=== PATIENT | female | born 1960 | race Caucasian/White ===

== ENCOUNTER 2021-03-14 15:29 | Observation (INO) | payer OTHER ==
[~2021-03-14] VITALS: Ht 170.2 cm; Wt 86.2 kg
[~2021-03-14 15:29] MED LIST: ASPIR-LOW81 MG PO; LEVOTHYROXINE88 MCG PO; NEXIUM40 MG PO; SERTRALINE HCL25 MG PO; TOPIRAMATE25 MG PO
[2021-03-14 16:35] VITALS: BP 144/83
[2021-03-14 16:38] VITALS: BP 144/83
[2021-03-14 16:41] VITALS: BP 144/83
[2021-03-14] MEDS ORDERED: FAMOTIDINE20 MG PO (16:58)
[2021-03-14] MEDS ORDERED: CRESTOR20 MG PO (16:58)
[2021-03-14] MEDS ORDERED: LEVOTHYROXINE112 MCG PO (16:58)
[2021-03-14] MEDS ORDERED: SERTRALINE HCL100 MG PO (16:58)
[2021-03-14] MEDS: FAMOTIDINE 20 MG TAB PO SCH (17:00)
[2021-03-14 19:07] LABS: CHOL/HDL RATIO 2.7 (3.0-3.6)
[2021-03-14 19:27] LABS: THYROID STIMULATING HORMONE 1.074 uIU/mL (0.350-4.940)
[2021-03-14 19:52] LABS: ANION GAP 13.9 mmol/L (8-16); CALCIUM 8.8 mg/dL (8.4-10.2); CREATININE, SERUM 0.82 mg/dL (0.57-1.11); POTASSIUM 3.9 mmol/L (3.5-5.1)
[2021-03-14 20:00] VITALS: BP 144/83
[2021-03-14 20:19] VITALS: BP 114/69
[2021-03-14] MEDS ORDERED: CRESTOR 10MG PO SCH (21:00)
[2021-03-15] VITALS: BP 104/62
[2021-03-15 05:23] LABS: BASOPHILS # (AUTO) 0.1 (0.0-0.1); BASOPHILS % 0.7 % (0.0-1.0); EOSINOPHILS # (AUTO) 0.2 (0.0-0.4); EOSINOPHILS % 2.8 % (0.0-6.0); HEMATOCRIT 38.7 % (34.2-44.1); HEMOGLOBIN 12.8 g/dL (12.0-16.0); LYMPHOCYTES # (AUTO) 3.1 (1.0-3.2); LYMPHOCYTES % 36.5 % (18.0-39.1); MEAN CORPUSCULAR HEMOGLOBIN 31.4 pg (28-32); MEAN CORPUSCULAR HGB CONC 33.1 g/dL (31-35); MEAN CORPUSCULAR VOLUME 94.9 fL (81-99); MONOCYTES # (AUTO) 0.6 (0.2-0.8); NEUTROPHILS # (AUTO) 4.4 (2.1-6.9); NEUTROPHILS % 52.6 % (38.7-80.0); PLATELET COUNT 200 x10e3/uL (140-360); RED BLOOD COUNT 4.08 x10e6/uL (3.6-5.1); RED CELL DISTRIBUTION WIDTH 12.9 % (11.7-14.4)
[2021-03-15 06:00] LABS: CALCIUM 8.9 mg/dL (8.4-10.2); CREATININE, SERUM 0.86 mg/dL (0.57-1.11)
[2021-03-15] MEDS ORDERED: LEVOTHYROXINE SODIUM 112 MCG TAB PO SCH (06:00)
[2021-03-15 08:26] VITALS: BP 100/65
[2021-03-15 08:40] VITALS: BP 100/65
[2021-03-15] MEDS: FAMOTIDINE 20 MG TAB PO SCH ×2 (08:56→16:40)
[2021-03-15] MEDS ORDERED: TOPIRAMATE 25 MG TAB PO SCH (09:00)
[2021-03-15] MEDS ORDERED: SERTRALINE HCL 100 MG TAB PO SCH (09:00)
[2021-03-15] MEDS ORDERED: FAMOTIDINE 20 MG TAB PO ONE (09:00)
[2021-03-15] MEDS ORDERED: ASPIRIN 81 MG CHEW TAB PO SCH (09:00)
[2021-03-15] MEDS: MECLIZINE HCL 12.5 MG TAB PO SCH ×2 (11:35→20:55)
[2021-03-15 12:09] VITALS: BP 103/64
[2021-03-15 15:52] VITALS: BP 101/57
[2021-03-15] MEDS ORDERED: MECLIZINE HCL12.5 MG PO (20:29)
[2021-03-16] MEDS ORDERED: SERTRALINE HCL 100 MG TAB PO SCH (09:00)
== END 2021-03-15 21:05 | disposition home or self-care (01) ==
LOC: MED/SURG 15:29
PROVIDERS: ADMIT Internal Medicine; ATTEND Internal Medicine
DX: R42 Dizziness and giddiness (principal); R27.0 Ataxia, unspecified; E03.9 Hypothyroidism, unspecified; F17.200 Nicotine dependence, unspecified, uncomplicated; Z86.73 Personal history of transient ischemic attack (TIA), and cerebral infarction without residual deficits; Z88.1 Allergy status to other antibiotic agents; Z88.0 Allergy status to penicillin
CPT/HCPCS: 36415 ×2; 70551; 80048 ×2; 80061; 82607; 83090; 84443; 84484; 85025; 86039; 93880; 97116; 97161; G0378 ×2; J8597